=== PATIENT | male | born 1975 | race Two or more races ===

== ENCOUNTER 2019-09-05 22:09 | Emergency (ER) | payer OTHER ==
[~2019-09-05] VITALS: Ht 188 cm; Wt 113.6 kg
[2019-09-05 23:26] VITALS: BP 145/82
[2019-09-05] MEDS ORDERED: BACITRACIN 0.9 GM PACKET OINTMENT TP ONE (23:45)
== END 2019-09-05 23:53 | disposition home or self-care (01) ==
LOC: EMS 22:09
DX: T16.2XXA Foreign body in left ear, initial encounter (principal); S00.412A Abrasion of left ear, initial encounter; X58.XXXA Exposure to other specified factors, initial encounter; Y93.89 Activity, other specified; Y92.89 Other specified places as the place of occurrence of the external cause; Y99.8 Other external cause status
CPT/HCPCS: 69200